=== PATIENT | female | born 1945 | race Caucasian/White ===

== ENCOUNTER → 2020-06-11 | Outpatient (CLI) | payer MEDICARE, OTHER | LOC: CT 10:15 | DX: R22.1 Localized swelling, mass and lump, neck (principal) | CPT/HCPCS: 70491; Q9963 ==

== ENCOUNTER → 2020-09-28 | Outpatient (CLI) | payer MEDICARE, OTHER | LOC: KOH-I 09-08 15:00 | DX: R79.89 Other specified abnormal findings of blood chemistry (principal); N27.9 Small kidney, unspecified | CPT/HCPCS: 76775 ==

== ENCOUNTER → 2021-05-03 | Outpatient (CLI) | payer MEDICARE, OTHER | LOC: HEART 5 09:02 | DX: J44.9 Chronic obstructive pulmonary disease, unspecified (principal) | CPT/HCPCS: 94060; 94729 ==

== ENCOUNTER 2021-07-22 09:49 | Inpatient (IN) | payer MEDICARE, OTHER ==
[~2021-07-22] VITALS: Ht 165.1 cm; Wt 97.5 kg
[~2021-07-22 09:49] MED LIST: SULFAMETHOXAZO1 EACH PO
[2021-07-22 10:55] LABS: HEMOGLOBIN 12.4 gm/dl (12.3-15.3); RED BLOOD COUNT 4.3 M/UL (4.00-5.10)
[2021-07-22] MEDS ORDERED: BUMETANIDE0.5 MG PO (17:02)
[2021-07-22] MEDS ORDERED: XARELTO20 MG PO (17:06)
[2021-07-22] MEDS ORDERED: DIGOXIN125 MCG PO (17:07)
[2021-07-22] MEDS ORDERED: LOPRESSOR 50 MG50 MG PO (17:08)
[2021-07-22] MEDS ORDERED: ATORVASTATIN CA40 MG PO (17:10)
[2021-07-22] MEDS ORDERED: LEVOTHYROXINE50 MCG PO (17:11)
[2021-07-22] MEDS ORDERED: CLOPIDOGREL75 MG PO (17:12)
[2021-07-22] MEDS ORDERED: NYSTOP60 GM TOP (17:15)
[2021-07-22] MEDS ORDERED: TYLENOL EXTRA500 MG PO (17:20)
[2021-07-22] MEDS ORDERED: OYSTER SHELL C500 MG PO (17:21)
[2021-07-22] MEDS ORDERED: VITAMIN B-12100 MCG PO (17:22)
[2021-07-22] MEDS ORDERED: VITAMIN D3125 MCG PO (17:23)
[2021-07-23 01:39] LABS: HEMOGLOBIN 11.6 gm/dl (12.3-15.3); RED BLOOD COUNT 4.09 M/UL (4.00-5.10); WHITE BLOOD COUNT 8.8 K/UL (4.5-11.0)
[2021-07-24 02:45] LABS: HEMOGLOBIN 11.5 gm/dl (12.3-15.3); RED BLOOD COUNT 4.03 M/UL (4.00-5.10)
[2021-07-24 02:56] LABS: WHITE BLOOD COUNT 5.7 K/UL (4.5-11.0)
[2021-07-25 07:58] LABS: RED BLOOD COUNT 4.25 M/UL (4.00-5.10); WHITE BLOOD COUNT 6.6 K/UL (4.5-11.0)
[2021-07-26 02:27] LABS: HEMOGLOBIN 11.7 gm/dl (12.3-15.3); RED BLOOD COUNT 4.09 M/UL (4.00-5.10); WHITE BLOOD COUNT 7.7 K/UL (4.5-11.0)
[2021-07-27 12:05] LABS: HEMOGLOBIN 11.4 gm/dl (12.3-15.3)
--- NOTE | 2021-07-28 17:14 | NUR ---
1000 PT DECLINES DRESSING CHANGE SAYS THAT HER LEGS ARE HURTING TOO BAD REGARDLESS OF THE PERCOCET, PT STATED THAT DRESSING CHANGE WAS DONE EARLY THIS MORNING
[2021-07-28] MEDS ORDERED: BACTROBAN OINT22 GM EXT (18:34)
--- NOTE | 2021-07-30 02:01 | NUR ---
TELE CALLED PATIENT HAD A 7 BEAT RUN OF V TACH. PROVIDER NOTIFIED AND STATED "OK". NO NEW ORDERS AT THIS TIME.
[2021-07-30 06:20] LABS: HEMOGLOBIN 10.4 gm/dl (12.3-15.3); RED BLOOD COUNT 3.63 M/UL (4.00-5.10); WHITE BLOOD COUNT 8.3 K/UL (4.5-11.0)
[2021-07-30] MEDS ORDERED: LEVOFLOXACIN250 MG PO (11:53)
[2021-07-30] MEDS ORDERED: AMOX TR-K CLV1 EAC4 PO (11:53)
[2021-07-30] MEDS ORDERED: LOPRESSOR 50 MG50 MG PO (11:53)
[2021-07-30] MEDS ORDERED: PERCOCET 5/325 T1 EA PO (11:55)
[2021-07-30] MEDS ORDERED: ASPIRIN EC81 MG PO (11:55)
--- NOTE | 2021-07-31 00:59 | NUR ---
DURING CHANGE OF SHIFT REPORT I WAS INFORMED BY [facility] NURSE THAT THE PROVIDER PLACED NEW ORDERS FOR A BLADDER IRRIGATION CATHETER ON THE PATIENT. THE ORDER WAS PLACED AT 1720 FOR CATHETER INSERTION HOWEVER THE DAYSWIFT RN WAS UNABLE TO INSERT THE CATHETER WITH OUT IT COMING BACK OUT. I HAD JOSE ASSIST ME WITH HOLDING THE PATIENTS LEGS WHILE I INSERTED THE CATHETER. THE BALLOON REQUIRED 30ML TO INFLATE. ONCEW THE IRRIGATION CATHETER WAS INSERTED THE IRRICATION AND THE DRAINAGE BAG WERE CONNECTED. IRRIGATION WAS STARTED AT A SLOW DRIP. PATIENT TOLERATED PROCEDURE WELL.
--- NOTE | 2021-07-31 02:47 | NUR ---
PATIENTS BP LOW PROVIDER NOTIFIED, NEW ORDERS PLACED.
[2021-08-03 06:38] LABS: HEMOGLOBIN 9.2 gm/dl (12.3-15.3); RED BLOOD COUNT 3.22 M/UL (4.00-5.10); WHITE BLOOD COUNT 7.8 K/UL (4.5-11.0)
--- NOTE | 2021-08-03 11:24 | NUR ---
1124- PATIENT'S VENOUS STASIS ARE BLEEDING THROUGH BANDAGES. LARGE AMOUT OF BLOODY DRAINAGE. I NOTIFIED DR. HOOKS TO COME LOOK BEFORE PT IS DISCARGED TO [facility]. DR. HOOKS STATED HE ALREADY LOOKED AT HER LEGS TO DISCHARGE HER. DR HOOKS REFUSED TO COME TO PATIENTS BEDSIDE. I TOOK PICTURES OF PATIENTS LEGS AND WILL FILE IN HER CHART.
== END 2021-08-03 16:21 | DRG 682 ==
LOC: ER1 09:49 → PROG CARE 14:13 → CDU 14:13 → PROG CARE 16:21 → M/S 07-23 08:16
PROVIDERS: Internal Medicine; Internal Medicine Cardiovascular Disease; Internal Medicine Nephrology; Physician Assistant; Physician Assistant Medical; ADMIT Internal Medicine
DX: N17.9 Acute kidney failure, unspecified (principal); I50.23 Acute on chronic systolic (congestive) heart failure; I13.0 Hypertensive heart and chronic kidney disease with heart failure and stage 1 through stage 4 chronic kidney disease, or unspecified chronic kidney disease; N39.0 Urinary tract infection, site not specified; L97.819 Non-pressure chronic ulcer of other part of right lower leg with unspecified severity; L97.829 Non-pressure chronic ulcer of other part of left lower leg with unspecified severity; I48.91 Unspecified atrial fibrillation; E78.5 Hyperlipidemia, unspecified; B96.20 Unspecified Escherichia coli [E. coli] as the cause of diseases classified elsewhere; A49.01 Methicillin susceptible Staphylococcus aureus infection, unspecified site; R31.9 Hematuria, unspecified; E87.5 Hyperkalemia; J44.9 Chronic obstructive pulmonary disease, unspecified; N18.30 Chronic kidney disease, stage 3 unspecified; I51.7 Cardiomegaly; I34.0 Nonrheumatic mitral (valve) insufficiency; I25.10 Atherosclerotic heart disease of native coronary artery without angina pectoris; Z88.8 Allergy status to other drugs, medicaments and biological substances; Z87.891 Personal history of nicotine dependence; I25.5 Ischemic cardiomyopathy; I83.018 Varicose veins of right lower extremity with ulcer other part of lower leg; I83.028 Varicose veins of left lower extremity with ulcer other part of lower leg
CPT/HCPCS: ECHO; 36415; 71045; 80048; 80053; 80162; 81001; 82550; 82553; 82570; 83540; 83550; 83605; 83735; 83880; 84132; 84133; 84156; 84300; 84484; 85014; 85018; 85025; 85027; 85652; 86140; 87040; 87070; 87077; 87086; 87186; 87205; 93005; 93306; 93925; 97110; 97110-GP-CQ; 97161; 97166; 97530; 97530-GP-CQ; 99285; G0378; J0696; J7030; Q0177; U0002

== ENCOUNTER → 2021-08-15 | Outpatient (CLI) | payer MEDICARE, OTHER ==
[~2021-08-15] MED LIST changes: +AMOX TR-K CLV1 EAC4 PO; +ASPIRIN EC81 MG PO; +ATORVASTATIN CA40 MG PO; +BACTROBAN OINT22 GM EXT; +BUMETANIDE0.5 MG PO; +CLOPIDOGREL75 MG PO; +DIGOXIN125 MCG PO; +LEVOFLOXACIN250 MG PO; +LEVOTHYROXINE50 MCG PO; +LOPRESSOR 50 MG50 MG PO; +NYSTOP60 GM TOP; +OYSTER SHELL C500 MG PO; +PERCOCET 5/325 T1 EA PO; +TYLENOL EXTRA500 MG PO; +VITAMIN B-12100 MCG PO; +VITAMIN D3125 MCG PO; +XARELTO20 MG PO
== END ==
LOC: WCC 07:20
DX: L97.828 Non-pressure chronic ulcer of other part of left lower leg with other specified severity (principal); L97.818 Non-pressure chronic ulcer of other part of right lower leg with other specified severity; I87.333 Chronic venous hypertension (idiopathic) with ulcer and inflammation of bilateral lower extremity; I48.91 Unspecified atrial fibrillation; J44.9 Chronic obstructive pulmonary disease, unspecified; R60.0 Localized edema; E66.01 Morbid (severe) obesity due to excess calories; M79.661 Pain in right lower leg; M79.662 Pain in left lower leg; E46 Unspecified protein-calorie malnutrition; I10 Essential (primary) hypertension; Z88.8 Allergy status to other drugs, medicaments and biological substances; Z79.01 Long term (current) use of anticoagulants; Z79.82 Long term (current) use of aspirin

== ENCOUNTER 2021-08-19 11:52 | Emergency (ER) | payer MEDICARE, OTHER ==
[2021-08-19 12:41] LABS: RED BLOOD COUNT 1.33 M/UL (4.00-5.10); WHITE BLOOD COUNT 12.9 K/UL (4.5-11.0)
[2021-08-19 13:28] LABS: HEMOGLOBIN 3.8 gm/dl (12.3-15.3)
== END 2021-08-19 20:50 | disposition short-term general hospital (02) ==
LOC: ER1 11:52
PROVIDERS: Physician Assistant Medical
DX: K92.2 Gastrointestinal hemorrhage, unspecified (principal); I13.0 Hypertensive heart and chronic kidney disease with heart failure and stage 1 through stage 4 chronic kidney disease, or unspecified chronic kidney disease; N18.9 Chronic kidney disease, unspecified; N17.9 Acute kidney failure, unspecified; D63.1 Anemia in chronic kidney disease; N28.1 Cyst of kidney, acquired; I48.91 Unspecified atrial fibrillation; I50.9 Heart failure, unspecified; J44.9 Chronic obstructive pulmonary disease, unspecified; E78.5 Hyperlipidemia, unspecified; Z88.8 Allergy status to other drugs, medicaments and biological substances; Z87.891 Personal history of nicotine dependence; Z51.81 Encounter for therapeutic drug level monitoring
CPT/HCPCS: 36600; 70450; 71045; 80053; 81001; 82272; 82550; 82553; 82803; 83605; 83690; 83880; 84439; 84443; 84484; 85025; 85610; 86850; 86900; 86901; 86920; 87040; 93005; 96374; 99285; C9113; J2405; J7040; P9016

== ENCOUNTER → 2021-11-07 | Outpatient (CLI) | payer MEDICARE, OTHER | LOC: WCC 06:49 | DX: I87.333 Chronic venous hypertension (idiopathic) with ulcer and inflammation of bilateral lower extremity (principal); I87.2 Venous insufficiency (chronic) (peripheral); L97.821 Non-pressure chronic ulcer of other part of left lower leg limited to breakdown of skin; L97.811 Non-pressure chronic ulcer of other part of right lower leg limited to breakdown of skin; I48.91 Unspecified atrial fibrillation; J44.9 Chronic obstructive pulmonary disease, unspecified; R60.0 Localized edema; E66.01 Morbid (severe) obesity due to excess calories; E46 Unspecified protein-calorie malnutrition; I10 Essential (primary) hypertension; Z88.8 Allergy status to other drugs, medicaments and biological substances; Z87.891 Personal history of nicotine dependence ==

== ENCOUNTER → 2021-11-08 | Outpatient (CLI) | payer MEDICARE, OTHER | LOC: RAD 12:59 | DX: R06.02 Shortness of breath (principal); J90 Pleural effusion, not elsewhere classified | CPT/HCPCS: 71046 ==

== ENCOUNTER → 2021-11-14 | Emergency (ER) | payer MEDICARE, OTHER ==
[2021-11-14 15:34] LABS: HEMOGLOBIN 7.3 gm/dl (12.3-15.3); RED BLOOD COUNT 3.25 M/UL (4.00-5.10); WHITE BLOOD COUNT 9.6 K/UL (4.5-11.0)
== END | disposition home or self-care (01) ==
LOC: ER1 14:57
PROVIDERS: Emergency Medicine
DX: D64.9 Anemia, unspecified (principal); R60.0 Localized edema; I25.2 Old myocardial infarction; I48.91 Unspecified atrial fibrillation; I50.9 Heart failure, unspecified; J44.9 Chronic obstructive pulmonary disease, unspecified; E66.9 Obesity, unspecified
CPT/HCPCS: 36430; 71045; 80053; 82272; 82550; 82553; 83880; 84484; 85025; 86850; 86900; 86901; 86920; 93005; 99284; P9016

== ENCOUNTER → 2021-11-14 | Outpatient (CLI) | payer MEDICARE, OTHER | LOC: WCC 07:14 | DX: I87.333 Chronic venous hypertension (idiopathic) with ulcer and inflammation of bilateral lower extremity (principal); L97.212 Non-pressure chronic ulcer of right calf with fat layer exposed; L97.222 Non-pressure chronic ulcer of left calf with fat layer exposed; I48.91 Unspecified atrial fibrillation; J44.9 Chronic obstructive pulmonary disease, unspecified; E66.01 Morbid (severe) obesity due to excess calories; M79.661 Pain in right lower leg; M79.662 Pain in left lower leg; E46 Unspecified protein-calorie malnutrition; I10 Essential (primary) hypertension; Z68.32 Body mass index [BMI] 32.0-32.9, adult ==

== ENCOUNTER → 2021-11-23 | Outpatient (CLI) | payer MEDICARE, OTHER ==
[~2021-11-23] MED LIST changes: +CEPHALEXIN500 M1 PO; +MECLIZINE HCL25 MG PO; +ONDANSETRON ODT4 MG SL
== END ==
LOC: WCC 07:34
DX: I87.333 Chronic venous hypertension (idiopathic) with ulcer and inflammation of bilateral lower extremity (principal); L97.212 Non-pressure chronic ulcer of right calf with fat layer exposed; L97.222 Non-pressure chronic ulcer of left calf with fat layer exposed; I48.91 Unspecified atrial fibrillation; J44.9 Chronic obstructive pulmonary disease, unspecified; R60.0 Localized edema; E66.01 Morbid (severe) obesity due to excess calories; M79.661 Pain in right lower leg; M79.662 Pain in left lower leg; E46 Unspecified protein-calorie malnutrition; I10 Essential (primary) hypertension; Z88.8 Allergy status to other drugs, medicaments and biological substances; Z68.32 Body mass index [BMI] 32.0-32.9, adult
CPT/HCPCS: 97597

== ENCOUNTER 2021-11-29 08:52 | Emergency (ER) | payer MEDICARE, OTHER ==
[~2021-11-29 08:52] MED LIST changes: -CEPHALEXIN500 M1 PO; -MECLIZINE HCL25 MG PO; -ONDANSETRON ODT4 MG SL
[2021-11-29 12:05] LABS: HEMOGLOBIN 8.2 gm/dl (12.3-15.3); RED BLOOD COUNT 3.67 M/UL (4.00-5.10)
[2021-11-29] MEDS ORDERED: CEPHALEXIN500 M1 PO (15:38)
[2021-11-29] MEDS ORDERED: MECLIZINE HCL25 MG PO (15:38)
[2021-11-29] MEDS ORDERED: ONDANSETRON ODT4 MG SL (15:38)
== END 2021-11-29 16:40 | disposition home or self-care (01) ==
LOC: ER1 08:52
PROVIDERS: Physician Assistant
DX: R42 Dizziness and giddiness (principal); D64.9 Anemia, unspecified; I13.0 Hypertensive heart and chronic kidney disease with heart failure and stage 1 through stage 4 chronic kidney disease, or unspecified chronic kidney disease; N18.9 Chronic kidney disease, unspecified; R05.9 Cough, unspecified; E78.5 Hyperlipidemia, unspecified; J44.9 Chronic obstructive pulmonary disease, unspecified; I50.9 Heart failure, unspecified; E03.9 Hypothyroidism, unspecified; I48.91 Unspecified atrial fibrillation; Z88.8 Allergy status to other drugs, medicaments and biological substances
CPT/HCPCS: 70450; 71045; 80053; 82550; 82553; 84439; 84443; 84484; 85025; 93005; 99284

== ENCOUNTER → 2021-12-06 | Outpatient (CLI) | payer MEDICARE, OTHER ==
[~2021-12-06] MED LIST changes: +CEPHALEXIN500 M1 PO; +MECLIZINE HCL25 MG PO; +ONDANSETRON ODT4 MG SL
== END ==
LOC: WCC 07:20
DX: I87.333 Chronic venous hypertension (idiopathic) with ulcer and inflammation of bilateral lower extremity (principal); I87.2 Venous insufficiency (chronic) (peripheral); L97.222 Non-pressure chronic ulcer of left calf with fat layer exposed; L97.212 Non-pressure chronic ulcer of right calf with fat layer exposed; I48.91 Unspecified atrial fibrillation; J44.9 Chronic obstructive pulmonary disease, unspecified; R60.0 Localized edema; E66.01 Morbid (severe) obesity due to excess calories; E46 Unspecified protein-calorie malnutrition; I10 Essential (primary) hypertension